=== PATIENT | female | born 1965 | race African-American/Black ===

== ENCOUNTER 2020-07-13 11:34 | Emergency (ER) | payer MEDICAID ==
[~2020-07-13] VITALS: Ht 160 cm; Wt 47.0 kg
[2020-07-13] MEDS ORDERED: ACETAMINOPHEN 325MG TABLET PO ONE (12:15)
[2020-07-13] MEDS ORDERED: TOPUD MT (12:24)
[2020-07-13 15:02] VITALS: BP 135/89
== END 2020-07-13 15:03 | disposition home or self-care (01) ==
LOC: ER 12:07
DX: S09.8XXA Other specified injuries of head, initial encounter (principal); M54.2 Cervicalgia; M25.522 Pain in left elbow; R05 Cough; W20.1XXA Struck by object due to collapse of building, initial encounter; Y93.89 Activity, other specified; Y92.018 Other place in single-family (private) house as the place of occurrence of the external cause
CPT/HCPCS: 71045; 73080; 99285

== ENCOUNTER 2021-01-27 12:07 | Inpatient (IN) | payer MEDICAID, OTHER ==
[~2021-01-27] VITALS: Ht 167.6 cm; Wt 53.1 kg
[~2021-01-27 12:07] MED LIST: ACET-2708 MT; ALBU6.7H9 INH; P20 MT; TOPUD MT
[2021-01-27] MEDS ORDERED: METHYLPREDNISOLONE SOD SUCC 125 MG/2 ML VIAL IV STA (16:12)
[2021-01-27] MEDS ORDERED: ALBUTEROL (0.083%) 2.5MG/3ML NEB HHN STA (16:12)
[2021-01-27] MEDS ORDERED: AZITHROMYCIN 500MG/250ML 250 ML IV ONE (16:15)
[2021-01-27] MEDS ORDERED: SODIUM CHLORIDE 0.9% 1000ML BAG (SEPSIS BOLUS) IV ONE (16:15)
[2021-01-27] MEDS ORDERED: CEFTRIAXONE 1 G PREMIX 50 ML IV ONE (16:15)
[2021-01-27] MEDS ORDERED: ONDANSETRON HCL 4MG/2ML INJ IV ONE (16:15)
[2021-01-27] MEDS ORDERED: NITROGLYCERIN 0.4MG TABLET SL SL PRN (16:15)
[2021-01-27] MEDS ORDERED: ASPIRIN 81MG TABLET PO ONE (16:15)
[2021-01-27 16:48] LABS: BASOPHILS % 0.3 % (0.0-2.0); EOSINOPHILS % 1.8 % (0.0-5.0); HEMATOCRIT. 35.3 % (36.0-48.0); HEMOGLOBIN. 11.6 g/dL (12.0-16.0); MEAN PLATELET VOLUME 8.3 fl (7.4-10.4); MONOCYTES % 5.7 % (2.0-8.0); NEUTROPHILS % 66.2 % (40.0-76.0); PLATELET 411 x1000/uL (130-400); RED BLOOD CELL COUNT 4.31 mill/uL (4.2-5.4); RED CELL DISTRIBUTION WIDTH 13.5 % (11.6-14.6)
[2021-01-27 16:55] LABS: CHLORIDE 108 mEq/L (98-107)
[2021-01-27 17:06] LABS: D-DIMER 0.81 mg/L FEU (<0.50); PARTIAL THROMBOPLASTIN TIME 28.1 sec (23.4-31.0); PROTHROMBIN TIME 10.3 sec (9.6-11.0)
[2021-01-27] MEDS ORDERED: IOHEXOL-350 100 ML BOTTLE ONE (20:04)
[2021-01-27 21:20] LABS: CLARITY URINE CLEAR (CLEAR); COLOR URINE YELLOW (YELLOW); KETONES URINE NEGATIVE (NEGATIVE); LEUKOCYTE ESTERASE URINE NEGATIVE (NEGATIVE); NITRITE URINE NEGATIVE (NEGATIVE); OCCULT BLOOD URINE NEGATIVE (NEGATIVE); PH URINE 5.5 (4.5-8.0); PROTEIN URINE NEGATIVE (NEGATIVE); SPECIFIC GRAVITY URINE 1.043 (1.005-1.030)
[2021-01-28 09:35] VITALS: BP 135/102
[2021-01-28] MEDS ORDERED: CEFTRIAXONE 1 G PREMIX 50 ML IV SCH (10:45)
[2021-01-28] MEDS ORDERED: CEFTRIAXONE 1,000 MG in DEXTROSE 5% WATER 50 ML IV SCH ×2 (10:45→12:00)
[2021-01-28] MEDS ORDERED: IPRATROPIUM/ALBUTEROL 0.5-3(2.5)MG/3ML NEB HHN PRN (10:45)
[2021-01-28] MEDS ORDERED: ONDANSETRON HCL 4MG/2ML INJ IV PRN (10:45)
[2021-01-28] MEDS ORDERED: ACETAMINOPHEN 325MG TABLET PO PRN (10:45)
[2021-01-28] MEDS ORDERED: GUAIFENESIN-DM 200MG-20MG/10ML UDC PO PRN (10:45)
[2021-01-28] MEDS ORDERED: AZITHROMYCIN 250 MG TABLET PO SCH (11:00)
[2021-01-28 12:02] VITALS: BP 141/83
[2021-01-28 16:54] VITALS: BP 118/72
[2021-01-28 20:00] VITALS: BP 115/69
[2021-01-28 20:28] VITALS: BP 115/69
== END 2021-01-28 22:35 | disposition short-term general hospital (02) | DRG 139 ==
LOC: ER 12:07 → 6WST 23:35 → EDBEDREQ 01-28 03:35 → ENRESERV 01-28 07:24
PROVIDERS: ADMIT Internal Medicine; ATTEND Internal Medicine
DX: J18.9 Pneumonia, unspecified organism (principal); E44.1 Mild protein-calorie malnutrition; E87.8 Other disorders of electrolyte and fluid balance, not elsewhere classified; I10 Essential (primary) hypertension; D64.9 Anemia, unspecified; J40 Bronchitis, not specified as acute or chronic; M19.90 Unspecified osteoarthritis, unspecified site; Z20.822 Contact with and (suspected) exposure to COVID-19; J44.0 Chronic obstructive pulmonary disease with (acute) lower respiratory infection; Z79.1 Long term (current) use of non-steroidal anti-inflammatories (NSAID); Z79.899 Other long term (current) drug therapy; Z98.891 History of uterine scar from previous surgery; Z90.710 Acquired absence of both cervix and uterus; Z68.1 Body mass index [BMI] 19.9 or less, adult
CPT/HCPCS: 36415; 71045; 71275; 80053; 81003; 83605; 83880; 84145; 84484; 85025; 85379; 87426; 87804; 93005; 94640; 99285; C9803; J0456; J0696; J2405; J2930; J7030; J7060; Q9967; U0003; U0005